=== PATIENT | female | born 2000 | race Caucasian/White ===

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

== ENCOUNTER → 2021-06-08 16:28 | Outpatient (CLI) | payer MEDICAID, SELFPAY ==
[2021-06-12 05:07] LABS: Neisseria gonorrhoeae, NAA Negative (Negative)
== END ==
PROVIDERS: PCP Emergency Medicine; Visit Provider Obstetrics & Gynecology
DX: Z34.90 Encounter for supervision of normal pregnancy, unspecified, unspecified trimester (principal)
CPT/HCPCS: 87491; 87591

== ENCOUNTER 2024-07-14 23:14 | Emergency (ER) | payer SELFPAY ==
[2024-07-14 23:43] VITALS: BP 147/90; PULSE 77; RESP 16; TEMP 37.1; O2SAT 100; BMI 35.2
[2024-07-14 23:45] LABS: Microscopic, Urine URINE MICROSCOPIC (MICROSCOPIC)
[2024-07-14 23:48] LABS: Bilirubin,Urine Negative (Negative); Blood, Urine 3+ (Negative); Color,Urine YELLOW (Yellow); Glucose,Urine (UA) Negative (Negative); Ketones,Urine Negative (Negative); Leukocyte Esterase,Urine 1+ (Negative); Nitrate,Urine Negative (Negative); Protein,Urine 1+ (Negative)
[2024-07-14 23:49] LABS: Appearance,Urine Slightly Cloudy (Clear); Specific Gravity, Urine 1.027 (1.005-1.030)
[2024-07-15 00:07] LABS: Urine Pregnancy, HCG Qual. Negative (Negative)
[2024-07-15 00:25] LABS: RBC,Urine TNTC #/hpf (0-3); WBC,Urine TNTC #/hpf (0-3)
[2024-07-15 00:26] LABS: Bacteria,Urine 4+ /lpf
--- NOTE | 2024-07-15 00:43 | PC.NURSE ---
pt ambulatory to and from restroom mulitple times with slow steady gait ED provider at the bedside at this time.
--- NOTE | 2024-07-15 01:01 | HMH.EDGENADL ---
Discharge Plan Disposition Patient Disposition: Home, Self-Care Prescriptions Prescriptions: New doxycycline hyclate 100 mg tablet 100 mg PO BID 7 Days Qty: 14 0RF metronidazole 500 mg tablet 500 mg PO BID 7 Days Qty: 14 0RF amoxicillin-pot clavulanate 875-125 mg tablet 1 tab PO BID 7 Days Qty: 14 0RF No Action prenat.vits,madhav,kxf-axre-wyvfp Tablet 1 tab PO DAILY Qty: 30 2RF nitrofurantoin macrocrystal 100 mg capsule 100 mg PO BID 7 Days Qty: 14 0RF Rx Instructions: must administer with a meal/food Ventolin HFA 90 mcg/actuation HFA aerosol inhaler 1 puff INHALATION Q4-6H Qty: 8 5RF azithromycin 500 mg tablet 1,000 mg PO ONCE 1 Days Qty: 2 0RF Referrals Follow up/Referrals: Provider,Referral, MD [Primary Care Provider] - See instructions Activity Restrictions/Add. Instructions Additional Instructions/Restrictions: Please take antibiotics as prescribed for treatment of urinary tract infection as well as for treatment of possible exposure to STD. Please follow-up with your primary care provider. Please return to the emergency department if you develop any new or worsening symptoms or become concerned for your health. Clinical Impressions Clinical Impression: Possible exposure to STD UTI (urinary tract infection) Qualifiers: Urinary tract infection type: acute cystitis Hematuria presence: with hematuria Qualified Code(s): N30.01 - Acute cystitis with hematuria Instructions Patient Instructions: DI for Acute Abdominal Pain Print Language Print Language: Congolese Discharge ED Provider: Ventura David Adult HPI General Chief complaint: Abdominal Pain Stated complaint: pelvic pressure,burning,unable control urination Time Seen by Provider: 07/15/24 00:00 Mode of Arrival: Ambulatory Source of Information: Patient Description of Symptoms (Recalled from ER Triage Doc. by RN): Pt presents with c/o lower pelvic pain and dysuria that began approx 1 hour ago. Pt reports recent new sexual partner, unsure if partner used condom or not. History of Present Illness HPI narrative: 24-year-old female without significant past medical history presents for lower abdominal pain, dysuria, vaginal discharge. She reports new sexual partner couple of days ago. She reports that she is now having little bit of blood in the urine. He denies any history of kidney stones. Denies any flank pain. Does have some lower back pain. Denies fever at home. Related Data Previous Rx's ?Medication ?Instructions ?Recorded albuterol sulfate 90 mcg/actuation 1 puff inhalation Q4-6H #8 grams 09/29/19 aerosol inhaler (Ventolin HFA) nitrofurantoin macrocrystal 100 mg 100 mg PO BID 7 days #14 caps 06/08/21 capsule prenat.vits,madhav,tgt-cyvt-vzoxc 1 tab PO DAILY #30 tabs 06/08/21 azithromycin 500 mg tablet 1,000 mg (2 x 500 mg) PO ONCE 1 06/12/21 day #2 tabs amoxicillin 875 mg-potassium 1 tab PO BID 7 days #14 tabs 07/15/24 clavulanate 125 mg tablet doxycycline hyclate 100 mg tablet 100 mg PO BID 7 days #14 tabs 07/15/24 metronidazole 500 mg tablet 500 mg PO BID 7 days #14 tabs 07/15/24 Allergies Allergy/AdvReac Type Severity Reaction Status Date / Time Sulfa (Sulfonamide Allergy Mild Verified 06/08/21 14:21 Antibiotics) (SULFA (SULFONAMIDE ANTIBIOTICS)) [facility] Disclaimer: The information contained in this section may have been updated after the patient was seen, as this information can be updated by other users. Social History Smoking Status: Current every day smoker alcohol intake: never substance use type: denies use current occupational status: unemployed Travel in the last 8 weeks?: None housing: house Have you lived/traveled outside US in past 30 days?: No Contact w/someone who lives/traveled outside US past 30 days?: No Exposure to someone with infectious disease in past 14 days?: No Do you have a fever (greater than 100.4 F or 38 C)?: No Have you tested positive for COVID-19?: No Exposed to someone with COVID-19 in past 14 days?: No Do you have a sore throat?: No Do you have a cough?: No Do you have any weakness?: No Do you have any diarrhea?: No Are you experiencing any unusual bleeding?: No Do you have any muscle aches/pain?: No Do you have any abdominal pain?: No Are you experiencing loss of taste or smell?: No Other Medical History Have you received the Pneumonia Vaccine: No ROS Obtained: Yes All systems reviewed & no additional complaints except as documented Physical Exam General General appearance: alert and in no apparent distress Head Head exam: atraumatic and normocephalic Eye Eye exam: Present normal appearance, PERRL and EOMI ENT ENT exam: Present normal oropharynx and normal external ear exam Neck Neck exam: Present normal inspection and full ROM Chest Chest inspection: Present normal inspection and symmetric chest wall rise; Absent tenderness Respiratory Respiratory exam: Present normal lung sounds bilaterally; Absent respiratory distress Cardiovascular Cardiovascular exam: Present regular rate and normal rhythm Abdominal Exam Abdominal exam: Present soft and tenderness (Suprapubic); Absent distention or guarding Extremities Exam Extremities exam: Present normal inspection; Absent edema or joint swelling Back Exam Back exam: Present normal inspection; Absent tenderness Neurological Exam Neurological exam: Present alert and oriented X3; Absent motor sensory deficit Psychiatric Psychiatric exam: Present normal affect and normal mood Skin Skin exam: Present warm, dry and normal color Lymphatic Lymphatic Findings: no adenopathy Medical Decision Making Medical Records Medical records reviewed: Yes I reviewed the patient's medical records. Screening: Per USPSTF and CDC recommendations, given the prevalence of disease in our region, it is our hospital?s policy to screen for HIV and viral Hepatitis for all patients aged 18 and over and those with ongoing risk factors. Josep Inquiry Pt receiving controlled substance: No Josep was queried for this patient: No Vital Signs: 07/14/24 23:43 07/15/24 01:16 Temperature 98.8 F 98.6 F Temperature Source Oral Oral Pulse Rate 62 Pulse Rate [Radial] 77 Respiratory Rate 16 16 Blood Pressure 142/90 H Blood Pressure [Right Arm] 147/90 H Blood Pressure Mean [Right Arm] 109 Blood Pressure Position Sitting Blood Pressure Position [Right Arm] Sitting 02 Sat by Pulse Oximetry 100 Oxygen Delivery Method Room Air Room Air Lab Data Lab results reviewed: Yes I reviewed the patient's lab results. Lab Results 07/14/24 23:39: Urine Color Yellow, Urine Appearance Slightly cloudy, Urine pH 6.0, Ur Specific [place] 1.027, Urine Protein 1+ A, Urine Glucose (UA) Negative, Urine Ketones Negative, Urine Blood 3+ A, Urine Nitrate Negative, Urine Bilirubin Negative, Urine Urobilinogen 1.0, Ur Leukocyte Esterase 1+ A, Urine RBC Tntc, Urine WBC Tntc, Ur Squamous Epith Cells 10-20, Urine Bacteria 4+, Urine HCG, Qual Negative Orders (Tests/Meds): ED MEDICATIONS Discontinued Medications Generic Name Dose Route Start Last Admin Trade Name Marian PRN Reason Stop Dose Admin Amoxicillin/Clavulanate Potassium 1 each 07/15/24 00:49 07/15/24 01:03 Amoxicillin/Clavulanate Potassium 875/125mg Tablet PO 07/15/24 00:50 1 each ONCE ONE Administration Ceftriaxone Sodium 500 mg 07/15/24 00:49 07/15/24 01:02 Ceftriaxone 500mg Vial IM 07/15/24 00:50 500 mg ONCE ONE Administration Doxycycline Hyclate 100 mg 07/15/24 00:50 07/15/24 01:03 Doxycycline Hycl 100 Mg Tablet PO 07/15/24 00:51 100 mg ONCE ONE Administration Lidocaine HCl 0 ml 07/15/24 00:49 07/15/24 01:03 Lidocaine 1% 5ml Pf Vial IM 07/15/24 00:50 5 ml ONCE ONE Administration Metronidazole 500 mg 07/15/24 00:49 07/15/24 01:03 Metronidazole 500 Mg Tablet PO 07/15/24 00:50 500 mg ONCE ONE Administration ORDERS Category Date Time Status UA [Urinalysis and Microscopic] Stat Lab 07/14/24 23:39 Completed Urine Chlam/Gono/Trich, SANDY Stat Lab 07/14/24 23:39 Received Urine , HCG Qual. Stat Lab 07/14/24 23:39 Completed Urine Culture Stat Micro 07/14/24 23:39 Received Medical Decision Narrative: 24-year-old female without significant past medical history presents for urinary urgency, frequency, dysuria, suprapubic abdominal pain, low back pain about 2 days after intercourse with new sexual partner. History was obtained via interactive discussion with patient. On arrival, patient is [afebrile, hemodynamically stable, satting appropriately, alert, oriented x4, GCS 15], moving all extremities spontaneously. Full physical exam performed and significant for suprapubic tenderness Differential includes but is not limited to cystitis, pyelonephritis, STI, PID. Urine was negative. Urinalysis shows too numerous to count WBCs and RBCs and 4+ bacteria consistent with hemorrhagic cystitis. I discussed the patient's history with her and recommended that we treat empirically for STI as well as for UTI. She was agreeable to plan. She was given several antibiotics and discharged in stable condition with return precautions.. Procedures Risk/Benefits of Procedure(s) Were Explained: Yes Critical Care Critical Care Time Critical Care Time: No
[2024-07-15] MEDS: cefTRIAXone 500MG VIAL 500 MG IM (01:02)
[2024-07-15] MEDS: LIDOCAINE 1% 5ML PF VIAL IM (01:03)
[2024-07-15] MEDS: metroNIDAZOLE 500 MG TABLET PO (01:03)
[2024-07-15] MEDS: DOXYCYCLINE HYCL 100 MG TABLET PO (01:03)
[2024-07-15] MEDS: AMOXICILLIN/CLAVULANATE POTASSIUM 875/125MG TABLET 1 EACH PO (01:03)
[2024-07-15 01:16] VITALS: BP 142/90; PULSE 62; RESP 16; TEMP 37; O2SAT 100
[2024-07-16 00:31] LABS: Chlamydia trachomatis Negative (Negative); Neisseria gonorrhoeae Negative (Negative); Trichomonas vaginalis Negative (Negative)
--- NOTE | 2024-07-16 12:12 | PC.NURSE ---
Attempted to call patient regarding urine culture reports, no answer at number on chart, no answer at emergency contact number. Will attempt to contact at later time.
--- NOTE | 2024-07-18 13:07 | PC.NURSE ---
Opened PT chart to see if cultures were back yet.
--- NOTE | 2024-07-18 13:10 | PC.NURSE ---
pt returned call regarding urine culture and advised pt that she is too stop taking the augmentin and to start taking the cefdinir that was sent into pharmacy on 07/16. pt verbalized understanding
== END 2024-07-15 01:17 | disposition home or self-care (01) ==
PROVIDERS: Emergency Provider Emergency Medicine
DX: R10.9 Unspecified abdominal pain (principal); N30.01 Acute cystitis with hematuria; Z20.2 Contact with and (suspected) exposure to infections with a predominantly sexual mode of transmission; F17.210 Nicotine dependence, cigarettes, uncomplicated
CPT/HCPCS: 81001; 81025; 87086; 87088; 87186; 87491; 87591; 87661; 96372; 99283; J0696; J2003

== ENCOUNTER 2024-09-03 02:06 | Emergency (ER) | payer SELFPAY ==
[2024-09-03 02:14] VITALS: BP 136/88; PULSE 88; RESP 18; TEMP 36.9; O2SAT 100; BMI 34.7
--- OUTSIDE RECORDS SUMMARY | 2024-09-03 02:15 | XMS_ITS | Clinical Summary ---
Author Organization [facility] Address [address] [place] [id number] Phone [email or web address] Care Team Providers Care Enrolled Agent Name Role Phone Provider, No Primary Care Provider Unavailabl e Allergies Active Allergy Reactions Criticality Noted Date Comments Sulfa Antibiotics Anaphylaxis,Hives High 08/02/2021 Wasp Venom Protein Anaphylaxis High 08/02/2021 Medications Balcoltra 0.1-20 MG-MCG(21) tablet Take 1 tablet by mouth 1 (one) time each day. 03/27/2022 Active Junel FE 03/09 1-20 MG-MCG per tablet Take 1 tablet by mouth 1 (one) time each day. 05/03/2024 Active Active Problems Problem Noted Date Diagnosed Date Finger pain, right 05/16/2022 Overview (05/16/2022): R Index Finger smashed Encounters Date Type Department Care Team Description 07/27/2024 Documentation [facility] [address] [place] [phone] Kaylee Luo MA from Last 3 Months Social History Tobacco Use Types Packs/Day Years Used Date Smoking Tobacco: Every Day E-Cigarettes Smokeless Tobacco: Never Tobacco Cessation:Ready to Q uit: Not Asked; Counseling Given: Not Answered Intimate Partner Violence Answer Date R ecorded Insults You Not on file 11/14/2021 Threatens You Not on file 11/14/2021 Screams at You Not on file 11/14/2021 Physically Hurt Not on file 11/14/2021 Intimate Partner Violence Score Not on file 11/14/2021 Depression Answer Date Recorded PHQ Total Score 0 05/17/2022 Stress Answer Date Recorded Stress in your Life Not on file 12/25/2023 Dealing with Stress 3 12/25/2023 Comments No Sex and Gender Information Value Date Recorded Sex Assigned at Not on file Legal Sex Female 12:02 AM CDT Gender Identity Not on file Sexual Orientation Not on file Last Filed Vital Signs Vital Sign Reading Time Taken Comments Blood Pressure 119/80 06/26/2024 6:25 PM EDT Pulse 90 06/26/2024 6:25 PM EDT Temperature 36.3 C (97.4 F) 05/22/2024 10:01 PM EDT Respiratory Rate 18 06/26/2024 6:25 PM EDT Oxygen Saturation 99% 06/26/2024 6:25 PM EDT Inhaled Oxygen Concentration - - Weight 94.8 kg (209 lb) 05/22/2024 10:01 PM EDT Height 165.1 cm (5' 5 ) 05/22/2024 10:01 PM EDT Body Mass Index 34.78 05/22/2024 10:01 PM EDT Plan of Treatment Health Maintenance Due Date Last Done Comments Dental Cleaning/Exam 2001 HPV Immunization (1 - 3-dose series) 2016 Cervical Cancer Screening 2017 Men B Immunization (1 of 2 - Standard) 2017 Hepatitis B Immunization (1 of 3 - 19+ 3-dose series) 2020 Tetanus Diphtheria and Pertu ssis Immunization (1 - Tdap) 2020 Covid-19 Immunization (1 - 2 25 season) 2023 Influenza Immunization (#1) 2024 HIB Immunization Aged Out No longer e ligible based on patient's age to complete this topic Hepatitis A Immunization Aged Out No longer eligible based on patient's age to complete this topic Meningococcal Immunization Aged Out N o longer eligible based on patient's age to complete this topic Pneumococcal: Ped (0 to 5 Yr s) and At-Risk Member (6 to 64 Yrs) Aged Out No longer e ligible based on patient's age to complete this topic Polio Immunization Aged Out No longer eligible based on patient's age to complete this topic Varicella Immunization Aged Out No lo nger eligible based on patient's age to complete this topic Insurance OPT OUT NO COPAY NB Care Teams Enrolled Agent Relationship Specialty Start Date End Date Provider, KEEGAN Michaud [id number] PCP - General Curb Worker 05/17/22
--- OUTSIDE RECORDS SUMMARY | 2024-09-03 02:15 | XMS_ITS | Encounter Summary ---
Author Organization [facility] Address [address] [place] [phone] Phone [email or web address] Care Team Providers Care Computer Trainer Name Role Phone Provider, No Primary Care Provider Unavailabl e Encounter Details Date Type Department Care Team (Late st Contact Info) Description 07/27/[address] [place] [phone] Kaylee Luo MA [address] [place] [address] Social History Tobacco Use Types Packs/Day Years Used Date Smoking Tobacco: Every Day E-Cigarettes Smokeless Tobacco: Never Intimate Partner Violence Answer Date R ecorded [...] on file Sexual Orientation Not on file documented as of this encounter Progress Notes * Kaylee Luo MA - 07/27/2024 12:23 PM EDT Per report ending 07.05.2024 TM TERMED 07.01.2024 documented in this encounter Plan of Treatment Not on file documented as of this encounter Visit Diagnoses Not on filedocumented in this encounter Care Teams Computer Trainer Relationship Specialty Start Date End Date Provider, KEEGAN Michaud [id number] PCP - General Cloth Piecer 05/17/22 documented as of this encounter
--- NOTE | 2024-09-03 02:26 | XR_ITS ---
PROCEDURE INFORMATION: Exam: XR Right Foot Exam date and time: 09/03/2024 2:21 AM Age: 24 years old Clinical indication: Pain; Foot; Right; Additional info: Pallet fell on all toes, ttp at pip of all toes TECHNIQUE: Imaging protocol: Radiologic exam of the right foot. Views: 3 or more views. COMPARISON: No relevant prior studies available. FINDINGS: Bones/joints: Normal. Soft tissues: Normal. IMPRESSION: No acute findings.
[2024-09-03 02:29] VITALS: BP 147/99; PULSE 75; O2SAT 100
[2024-09-03] MEDS: ACETAMINOPHEN 500MG TAB 1000 MG PO (02:34)
--- NOTE | 2024-09-03 02:55 | ED_ITS ---
Discharge Plan Disposition Patient Disposition: Home, Self-Care Condition: Good Prescriptions Prescriptions: No Action prenat.vits,madhav,[id number] Tablet 1 tab PO DAILY Qty: 30 2RF nitrofurantoin macrocrystal 100 mg capsule 100 mg PO BID 7 Days Qty: 14 0RF Rx Instructions: must administer with a meal/food Ventolin HFA 90 mcg/actuation HFA aerosol inhaler 1 puff INHALATION Q4-6H Qty: 8 5RF azithromycin 500 mg tablet 1,000 mg PO ONCE 1 Days Qty: 2 0RF fluconazole 150 mg tablet 150 mg PO Q3D Qty: 2 0RF Rx Instructions: Take one tablet then second tablet 72 hours later. doxycycline hyclate 100 mg tablet 100 mg PO BID 7 Days Qty: 14 0RF metronidazole 500 mg tablet 500 mg PO BID 7 Days Qty: 14 0RF amoxicillin-pot clavulanate 875-125 mg tablet 1 tab PO BID 7 Days Qty: 14 0RF cefdinir 300 mg capsule 300 mg PO BID 10 Days Qty: 20 0RF Referrals Follow up/Referrals: Provider,Referral, MD [Primary Care Provider, Medical] - See instructions Activity Restrictions/Add. Instructions Additional Instructions/Restrictions: You were evaluated in the ER and are appropriate for discharge at this time. Take Tylenol or ibuprofen if needed for pain, do not exceed the recommended dose on the bottle. Drink water and eat a small snack each time you take these medications to avoid side effects. You can apply ice to the toes for up to 20 minutes at a time. Wrap the ice in a towel, do not apply it directly to the skin. Make an appointment with your primary care doctor for reevaluation. Return to the ER with any new, worsening, or otherwise concerning symptoms. Clinical Impressions Clinical Impression: Pain in right toe(s) Stand Alone Forms Stand Alone Forms: Work/School Release Print Language Print Language: Kittitian Discharge ED Provider: Isa Box Adult HPI General Chief complaint: Extremity Injury, Lower Stated complaint: R foot injury Time Seen by Provider: 09/03/24 02:15 Mode of Arrival: Ambulatory Source of Information: Patient Description of Symptoms (Recalled from ER Triage Doc. by RN): PT REPORTS SHE WAS AT WORK TONIGHT WHEN SHE DROPPED A 40POUND WOOD PALLET ON HER RIGHT FOOT FROM THIGH HEIGHT, IT LANDED ACROSS THE TOES AT APPROXIMATELY MIDNIGHT. History of Present Illness HPI narrative: 24-year-old female presents to the ER complaining of right foot pain. Patient reports she was at work tonight when she dropped a 40 pound wood pallet on her right foot from about the height of her mid thigh. He states it landed across the toes and demonstrates to the PIP across her toes. She states this happened around midnight, she took ibuprofen prior to arrival. She states she has been walking but is only able to walk on her heel. The toes are painful but she has range of motion in them. No numbness. She does not take any blood thinners, she did not strike her head or lose consciousness, no other injuries sustained. Related Data Previous Rx's ?Medication ?Instructions ?Recorded albuterol sulfate 90 mcg/actuation 1 puff inhalation Q 4-6H #8 grams 09/29/19 aerosol inhaler (Ventolin HFA) nitrofurantoin macrocrystal 100 mg 100 mg PO BID 7 day s #14 caps 06/08/21 capsule prenat.vits,madhav,[id number]-erkl-orxgi 1 tab PO DAILY #30 tabs 06/08/21 azithromycin 500 mg tablet 1,000 mg (2 x 500 mg) PO ON CE 1 06/12/21 day #2 tabs amoxicillin 875 mg-potassium 1 tab PO BID 7 days #14 t abs 07/15/24 clavulanate 125 mg tablet doxycycline hyclate 100 mg tablet 100 mg PO BID 7 days #14 tabs 07/15/24 metronidazole 500 mg tablet 500 mg PO BID 7 days #14 t abs 07/15/24 cefdinir 300 mg capsule 300 mg PO BID UTI 10 days #2 0 caps 07/16/24 fluconazole 150 mg tablet 150 mg PO Q3D 2 doses #2 tab s 07/28/24 Allergies Allergy/AdvReac Type Severity Reaction Status Date / Time Sulfa (Sulfonamide Allergy Mild Verified 06/08/21 14:21 Antibiotics) (SULFA (SULFONAMIDE ANTIBIOTICS)) [facility] Disclaimer: The information contained in this section may have been updated after the patient was seen, as this information can be updated by other users. Social History Smoking Status: Never smoker alcohol intake: never substance use type: denies use current occupational status: unemployed Travel in the last 8 weeks?: None housing: house Have you lived/traveled outside [place] in past 30 days?: No Contact w/someone who lives/traveled outside [place] past 30 days?: No Exposure to someone with infectious disease in past 14 days?: No Do you have a fever (greater than 100.4 F or 38 C)?: No Have you tested positive for COVID-19?: No Exposed to someone with COVID-19 in past 14 days?: No Do you have a sore throat?: No Do you have a cough?: No Do you have any weakness?: No Do you have any diarrhea?: No Are you experiencing any unusual bleeding?: No Do you have any muscle aches/pain?: No Do you have any abdominal pain?: No Are you experiencing loss of taste or smell?: No Other Medical History Have you received the Pneumonia Vaccine: No ROS Obtained: Yes Systems reviewed as appropriate & no additional complaints except as documented Per HPI Physical Exam General General appearance: alert and in no apparent distress Head Head exam: atraumatic and normocephalic Eye Eye exam: Present PERRL and EOMI ENT ENT exam: Present mucous membranes moist Neck Neck exam: Present normal inspection and full ROM Chest Chest inspection: Present symmetric chest wall rise Respiratory Respiratory exam: Absent respiratory distress or stridor Cardiovascular Cardiovascular exam: Present regular rate and normal rhythm Extremities Exam Extremities exam: Present full ROM, tenderness (All of the right toes at the PIP without swelling, deformity, bruising, or crepitus. Neurovascularly intact; no injury of the toenails), normal capillary refill and other (No other tenderness or evidence of injury) Neurological Exam Neurological exam: Present alert and oriented X3; Absent motor sensory deficit Psychiatric Psychiatric exam: Present normal affect and normal mood Skin Skin exam: Present warm and dry Medical Decision Making Medical Records Medical records reviewed: Yes I reviewed the patient's medical records. Screening: Per USPSTF and CDC recommendations, given the prevalence of disease in our region, it is our hospital?s policy to screen for HIV and viral Hepatitis for all patients aged 18 and over and those with ongoing risk factors. Josep Inquiry Pt receiving controlled substance: No Vital Signs: 09/03/24 02:14 09/03/24 02:29 09/03/24 03:00 Temperature 98.4 F Temperature Source Oral Pulse Rate 75 67 Pulse Rate [Right] 88 Respiratory Rate 18 Blood Pressure 147/99 H 132/82 Blood Pressure [Right Arm] 136/88 Blood Pressure Mean [Right Arm] 104 Blood Pressure Position 02 Sat by Pulse Oximetry 100 100 100 Oxygen Delivery Method Room Air Room Air 09/03/24 03:31 09/03/24 03:55 Temperature 98 F Temperature Source Oral Pulse Rate 79 67 Pulse Rate [Right] Respiratory Rate 14 Blood Pressure 154/106 H 156/85 H Blood Pressure [Right Arm] Blood Pressure Mean [Right Arm] Blood Pressure Position Sitting 02 Sat by Pulse Oximetry 100 Oxygen Delivery Method Room Air Room Air Orders (Tests/Meds): ED MEDICATIONS Discontinued Medications Generic Name Dose Route Start Last Admin Trade Name Alpeshq PRN Reason Stop Dose Admin Acetaminophen 1,000 mg 09/03/24 02:19 09/03/24 02:34 Acetaminophen 500mg Tab PO 09/03/24 02:20 1,000 mg ONCE ONE Administration ORDERS Category Date Time Status Foot XR right minimum 3 views [XR foot RT min 3V] Stat Exams 09/03/24 02:26 Completed Medical Decision Narrative: In summary, this 24-year-old female presents to the emergency department today with right toe pain. On initial evaluation patient is hemodynamically stable, afebrile, overall well-appearing with reassuring exam aside from tenderness of all of the toes on the right foot, she does not have any swelling, deformity, crepitus, or bruising. Neurovascularly intact, no other evidence of traumatic injury, no injury to the nails on any toe. Differential diagnosis includes but is not limited to fracture, dislocation, soft tissue injury, considered injury to the nail or nailbed but none is appreciated on exam, there is also no evidence of neurovascular injury. Based on these concerns, I ordered x-ray right foot. Patient reports she took ibuprofen prior to arrival but Tylenol was also administered to help with pain control. X-ray personally interpreted does not demonstrate acute osseous injury, I do not appreciate fracture or dislocation. See radiology read for final interpretation. On reassessment patient continues to be stable, resting comfortably. She is appropriate for discharge at this time. I gave patient instructions on continued symptomatic monitoring and management including the use of [id number] medications, follow-up instructions, and return precautions for the ER. She indicated understanding and the patient was discharged in stable condition. Critical Care Critical Care Time Critical Care Time: No
[2024-09-03 03:00] VITALS: BP 132/82; PULSE 67; O2SAT 100
[2024-09-03 03:31] VITALS: BP 154/106; PULSE 79; O2SAT 100
[2024-09-03 03:55] VITALS: BP 156/85; PULSE 67; RESP 14; TEMP 36.6; O2SAT 100
== END 2024-09-03 03:56 | disposition home or self-care (01) ==
PROVIDERS: Emergency Provider Emergency Medicine
DX: M79.674 Pain in right toe(s) (principal)
CPT/HCPCS: 73630; 99283